=== PATIENT | male | born 1980 | race Caucasian/White ===

== ENCOUNTER 2017-05-11 18:57 | Emergency (ER) | payer BC ==
[~2017-05-11] VITALS: Ht 172.7 cm; Wt 72.6 kg
[2017-05-11] MEDS ORDERED: Calcium Gluconate 1gm/10ml vial ONE ×3 (19:25→21:11)
[2017-05-11 19:29] VITALS: BP 137/93
[2017-05-11] MEDS ORDERED: Calcium Gluconate 10% 2 GM in NS 110 ML IVPB ONE ×2 (19:30→21:00)
[2017-05-11] MEDS ORDERED: NS 110ml ONE (19:43)
[2017-05-11 19:53] LABS: BASOPHILS % (AUTO) 1.2 % (0.0-2.0); EOSINOPHILS % (AUTO) 1.4 % (0.0-3.0); LYMPHOCYTES % (AUTO) 29.8 % (20.0-45.0); MEAN CORPUSCULAR HEMOGLOBIN 29.3 PG (27.0-31.0); MEAN CORPUSCULAR HGB CONC 33.9 G/DL (32.0-36.0); MEAN CORPUSCULAR VOLUME 87 FL (80-99); MEAN PLATELET VOLUME 7.7 FL (6.5-10.1); MONOCYTES % (AUTO) 7.3 % (1.0-10.0); NEUTROPHILS % (AUTO) 60.5 % (45.0-75.0); PLATELET COUNT 245 K/UL (150-450); RED BLOOD COUNT 5.42 M/UL (4.70-6.10); RED CELL DISTRIBUTION WIDTH 11.1 % (11.6-14.8); WHITE BLOOD COUNT 12.9 K/UL (4.8-10.8)
[2017-05-11 20:14] LABS: ALANINE AMINOTRANSFERASE 12 U/L (3-41); ALBUMIN/GLOBULIN RATIO 1.7 (1.0-2.7); ANION GAP 17 (5-15); ASPARTATE AMINO TRANSFERASE 17 U/L (5-40); CALCIUM 9.9 mg/dL (8.6-10.2); CARBON DIOXIDE 24 mEQ/L (20-30); CHLORIDE 98 mEQ/L (98-107); CREATININE 1.1 mg/dL (0.7-1.2); GLOMERULAR FILTRATION RATE > 60 mL/min (>60); HEMOLYSIS 7; POTASSIUM 4.3 mEQ/L (3.4-4.9); SODIUM 139 mEQ/L (135-145); TOTAL PROTEIN 8.1 g/dL (6.6-8.7)
[2017-05-11 21:07] VITALS: BP 116/69
[2017-05-11 21:15] VITALS: BP 116/69
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
== END 2017-05-11 21:15 | disposition left against medical advice (07) ==
LOC: EMR 19:42 → CANBEDREQ 20:23 → EMR 21:15
DX: T22.512A Corrosion of first degree of left forearm, initial encounter (principal); T22.511A Corrosion of first degree of right forearm, initial encounter; T65.891A Toxic effect of other specified substances, accidental (unintentional), initial encounter; X58.XXXA Exposure to other specified factors, initial encounter; Y92.9 Unspecified place or not applicable; D72.829 Elevated white blood cell count, unspecified
CPT/HCPCS: 36415; 80053; 82550; 85025; 96374; 96375; 99284; J0610

== ENCOUNTER 2017-05-12 12:32 | Emergency (ER) | payer BC ==
[~2017-05-12] VITALS: Ht 172.7 cm; Wt 72.6 kg
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
[2017-05-12 13:32] VITALS: BP 115/66
[2017-05-12 13:50] LABS: ALANINE AMINOTRANSFERASE 11 U/L (3-41); ALBUMIN/GLOBULIN RATIO 1.7 (1.0-2.7); ANION GAP 15 (5-15); ASPARTATE AMINO TRANSFERASE 15 U/L (5-40); CALCIUM 9.7 mg/dL (8.6-10.2); CARBON DIOXIDE 27 mEQ/L (20-30); CHLORIDE 99 mEQ/L (98-107); CREATININE 0.9 mg/dL (0.7-1.2); GLOMERULAR FILTRATION RATE > 60 mL/min (>60); HEMOLYSIS 7; MAGNESIUM 2.1 mg/dL (1.7-2.5); POTASSIUM 4.5 mEQ/L (3.4-4.9); SODIUM 141 mEQ/L (135-145); TOTAL PROTEIN 7.8 g/dL (6.6-8.7)
[2017-05-12 14:13] VITALS: BP 115/66
== END 2017-05-12 14:14 | disposition home or self-care (01) ==
LOC: EMR 13:20
DX: T65.91XD Toxic effect of unspecified substance, accidental (unintentional), subsequent encounter (principal); T30.4 Corrosion of unspecified body region, unspecified degree; F41.9 Anxiety disorder, unspecified
CPT/HCPCS: 36415; 80053; 83735; 99281